=== PATIENT | female | born 1950 | race Caucasian/White ===

== ENCOUNTER 2024-11-08 16:05 | Emergency (ER) | payer MEDICARE, SELFPAY ==
[2024-11-08 16:21] VITALS: BP 149/70; PULSE 91; RESP 16; TEMP 36.7; O2SAT 98
[2024-11-08 16:28] LABS: EDUAAPPEAR Clear; EDUABILI Negative (Negative); EDUABLOOD 1+ (Negative); EDUACOLOR1 Yellow; EDUAGLUCOSE Negative (Negative); EDUAKETONE Negative (Negative); EDUALEUKO Trace (Negative); EDUANITRATE Negative (Negative); EDUAPH 6.5; EDUAPROTEIN Negative (Negative); EDUASPGRAVITY 1.015; EDUAUROBILI 0.2
--- NOTE | 2024-11-08 16:49 | ED_ITS ---
HPI - Female Genitourinary General Chief complaint: Urogenital-Female Stated complaint: UTI/Back Pain Time Seen by Provider: 11/08/24 16:40 Source: patient and RN notes reviewed Mode of arrival: ambulatory Limitations: no limitations History of Present Illness HPI Narrative: 74-year-old female presents [facility] complaining of urinary symptoms started last night. Patient says he was recently traveling in a car for prolonged period of time. She knows she started with increased frequency today she has low back pain, chills, body aches, suprapubic pressure. Patient denies any dysuria, blood in her urine, abdominal pain, nausea vomiting, diarrhea, chest pain, difficulty breathing, fevers, or any other symptoms. Patient denies any significant past medical history. Related Data Home Medications ?Medication ?Instructions ?Recorded ?Confirmed ?Last Taken ?Type atorvastatin 10 mg tablet mg 11/08/24 Unknown History carvedilol 12.5 mg tablet mg 11/08/24 Unknown History hydrochlorothiazide 25 mg tablet mg 11/08/24 Unknown History losartan 50 mg tablet mg 11/08/24 Unknown History omeprazole 20 mg capsule,delayed mg 11/08/24 Unknown History release Allergies Allergy/AdvReac Type Severity Reaction Status Date / Time amoxicillin (From Augmentin) Allergy Rash Verified 11/08/24 16:32 clavulanic acid (From Allergy Rash Verified 11/08/24 16:32 Augmentin) Review of Systems Review of Systems: CONSTITUTIONAL: Denies fever, or sweats. Positive for chills and body aches. EYES: Denies visual changes, redness, or discharge. ENT: Denies rhinorrhea, congestion, sore throat, or otalgia. CARDIOVASCULAR: Denies chest pain, palpitations, or edema. RESPIRATORY: Denies cough or dyspnea. GASTROINTESTINAL: Denies abdominal pain, nausea, vomiting, or diarrhea. GENITOURINARY: Denies dysuria, hesitancy, or hematuria. Positive for frequency and suprapubic pressure. SKIN: Denies rash or itching. MUSCULOSKELETAL: Denies back pain, joint pain, or myalgia. NEUROLOGIC: Denies headache, numbness, or weakness. PSYCHIATRIC: Denies anxiety or depression. All other systems reviewed are negative, except as documented in HPI. PMFSH Comments At the time of my signature, I reviewed and agree with the nursing past medical, surgical, social, and family history. There is no relevant family history pertinent to the patient complaint. Exam Narrative: GENERAL: This is a well-nourished, well-developed adult, in no apparent di stress. They are non ill-appearing, nontoxic appearing. HEAD: normocephalic, atraumatic. EYES: Sclera clear/white. Conjunctiva normal. Vision is grossly intact. Extraocular movements intact EARS: External ears normal, Hearing grossly intact. NOSE: External nose normal THROAT: Mucous membranes moist, NECK: Neck supple, CARDIOVASCULAR: Regular rate and rhythm without murmurs, gallops, or rubs. RESPIRATORY: Clear to auscultation. Breath sounds equal bilaterally. No wheezes, rales, or rhonchi. GASTROINTESTINAL: Abdomen soft, mild suprapubic tenderness to palpation,, nondistended. Bowel sounds are active. No hepato-splenomegaly, or palpable masses. No guarding or rigidity. SKIN: warm, Dry, intact with no suspicious lesions or rash, good texture and turgor. NEURO: awake, alert, and oriented to person, place and time. There were no obvious focal neurologic abnormalities. EXTREMITIES: No joint tenderness, effusion, or edema noted. BACK: Nontender without deformity. No CVA tenderness. Course Course Emergency Course: Portions of this record may have been created with voice recognition software Level of Care: Express Care Visit Vital Signs Vital signs: Vital Signs Temperature 98.1 F 11/08/24 16:21 Pulse Rate 91 11/08/24 16:21 Respiratory Rate 16 11/08/24 16:21 Blood Pressure 149/70 H 11/08/24 16:21 Pulse Oximetry 98 11/08/24 16:21 Oxygen Delivery Room Air 11/08/24 16:21 Temperature 98.1 F 11/08/24 16:21 Pulse Rate 91 11/08/24 16:21 Respiratory Rate 16 11/08/24 16:21 Blood Pressure 149/70 H 11/08/24 16:21 Pulse Oximetry 98 11/08/24 16:21 Oxygen Delivery Room Air 11/08/24 16:21 Reviewed MDM - Female Genitourinary MDM Narrative Medical decision making narrative: Urine dipstick with evidence of urinary tract infection. Urine cultures pending. Patient's symptoms consistent with urinary tract infection. Patient nontoxic-appearing, no tachycardia, vital signs hemodynamically stable. Patient reports rash from penicillins, cannot take sulfas due to medication she takes. Will treat her with ciprofloxacin. Discussed physical exam findings. Advised supportive measures and signs/symptoms to go to the ER. Pt is appropriate for outpt treatment and f/u. Differential Diagnosis Differential diagnosis: Likely urinary tract infection, cystitis and other (Pyelonephritis) Lab Data Attestation: I reviewed the patient's lab results. Labs: Lab Results 11/08/24 Range/Units 16:25 POC Urine Color Yellow POC Urine Clarity Clear POC Urine pH 6.5 POC Ur Specif [place] 1.015 POC Urine Protein Negative (Negative) POC Ur Glucose (UA) Negative (Negative) POC Urine Ketones Negative (Negative) POC Urine Blood 1+ (Negative) POC Urine Nitrite Negative (Negative) POC Urine Bilirubin Negative (Negative) POC Urine Urobilinogen 0.2 POC U Leukocyte Esteras Trace (Negative) Critical Care Time Critical Care Time Critical Care Time: No Discharge Plan Discharge Clinical Impression: Urinary tract infection Qualifiers: Urinary tract infection type: site unspecified Hematuria presence: with hematuria Qualified Code(s): N39.0 - Urinary tract infection, site not specified Patient Disposition: Home Condition: Stable Instructions: Antibiotic Form, Urinary Tract Infection in Older Adults (ED) Additional Instructions: Take the antibiotic as prescribed The urine will be sent of for a culture to identify what type of bacteria is causing your infection. If the culture shows that the antibiotic will not get rid of your infection, you will be notified and a new antibiotic will be called in for you. Increase water intake you will need to follow up with your PCP 3-5 days. Go to the ER for any worsening symptoms, abdominal pain, fevers, nausea, v omiting, or any other concerns Patient Language: Romansh Prescriptions: New ciprofloxacin HCl 250 mg tablet 250 mg PO Q12H 3 Days Qty: 6 0RF No Action losartan 50 mg tablet carvedilol 12.5 mg tablet atorvastatin 10 mg tablet omeprazole 20 mg capsule,delayed release(DR/EC) hydrochlorothiazide 25 mg tablet Follow-up/Referrals: PHYSICIAN,[employer] MACHINE TENDER [Primary Care Provider, Internal Medicine] Time of Disposition: 16:47
== END 2024-11-08 16:59 | disposition home or self-care (01) ==
DX: N39.0 Urinary tract infection, site not specified (principal); I10 Essential (primary) hypertension; E78.00 Pure hypercholesterolemia, unspecified
CPT/HCPCS: 81003; 87086; 99203; G0463